=== PATIENT | male | born 1965 | race Caucasian/White ===

== ENCOUNTER 2020-08-17 18:35 | Inpatient (IN) | payer MEDICAID ==
[~2020-08-17] VITALS: Ht 175.3 cm; Wt 90.7 kg
[2020-08-17] MEDS ORDERED: DEXAMETHASONE 4MG/ML 1ML VIAL IV ONE (23:15)
[2020-08-17 23:32] LABS: BASOPHILS % 0.4 % (0.0-2.0); HEMATOCRIT. 48.3 % (42.0-52.0); HEMOGLOBIN. 16.4 g/dL (14.0-18.0); LYMPHOCYTES % 10.5 % (20.0-50.0); MEAN CORPUSCULAR HEMOGLOBIN 29.1 pg (28.0-32.0); MEAN CORPUSCULAR VOLUME 85.5 fL (80.0-94.0); MEAN PLATELET VOLUME 8.5 fl (7.4-10.4); MONOCYTES % 8.3 % (2.0-8.0); NEUTROPHILS % 80.8 % (40.0-76.0); PLATELET 229 x1000/uL (130-400); RED BLOOD CELL COUNT 5.66 mill/uL (4.7-6.1); RED CELL DISTRIBUTION WIDTH 14.8 % (11.6-14.6)
[2020-08-17 23:36] LABS: CHLORIDE 95 mEq/L (98-107)
[2020-08-18] MEDS ORDERED: CLONIDINE 0.1MG TABLET PO PRN (09:15)
[2020-08-18] MEDS ORDERED: ALBUTEROL 6.7GM HFA INHALER ORI PRN (09:15)
[2020-08-18] MEDS ORDERED: DEXTROSE 50% WATER 50ML SYRINGE IV PRN ×2 (09:15)
[2020-08-18] MEDS ORDERED: ONDANSETRON HCL 4MG/2ML INJ IV PRN (09:15)
[2020-08-18] MEDS ORDERED: ACETAMINOPHEN 650MG SUPP PR PRN (09:15)
[2020-08-18] MEDS ORDERED: SODIUM CHLORIDE 0.9% 500 ML IV ONE (09:15)
[2020-08-18 11:45] LABS: HEMATOCRIT 46.3 % (42.0-52.0); HEMOGLOBIN 16.2 g/dL (14.0-18.0); MEAN CORPUSCULAR HEMOGLOBIN 29.8 pg (28.0-32.0); MEAN CORPUSCULAR VOLUME 85.3 fL (80.0-94.0); PLATELET 257 x1000/uL (130-400); RED BLOOD CELL COUNT 5.43 mill/uL (4.7-6.1); RED CELL DISTRIBUTION WIDTH 14.4 % (11.6-14.6)
[2020-08-18 11:55] LABS: CHLORIDE 98 mEq/L (98-107)
[2020-08-18] MEDS: CEFTRIAXONE 1 G PREMIX 50 ML IV SCH (12:03)
[2020-08-18] MEDS: ENOXAPARIN 40MG/0.4ML SYR SUBCUT SCH (12:03)
[2020-08-18] MEDS: AZITHROMYCIN 500 MG in DEXT 5% WATER 250 ML IV SCH (12:37)
[2020-08-18] MEDS: BLOOD SUGAR DIAGNOSTIC STRIP TEST SCH ×3 (14:00→23:12)
[2020-08-18] MEDS: INSULIN LISPRO 100 UNITS/ML SUBCUT SCH ×3 (14:35→23:24)
[2020-08-18] MEDS: DEXAMETHASONE 10 MG/ML VIAL IV SCH (14:35)
[2020-08-18] MEDS: DOCUSATE SODIUM 100MG CAPSULE PO SCH (17:00)
[2020-08-18 19:34] LABS: CREATINE KINASE MB FRACTION 1.8 ng/mL (0.5-3.6)
[2020-08-18 20:00] LABS: HEPATITIS B SURFACE ANTIGEN NEGATIVE
[2020-08-18 20:30] LABS: HEPATITIS A AB IGM NEGATIVE (NEGATIVE)
[2020-08-18] MEDS: ASCORBIC ACID 500 MG TABLET PO SCH (23:24)
[2020-08-19 00:05] LABS: CREATINE KINASE MB FRACTION 1.5 ng/mL (0.5-3.6)
[2020-08-19 05:36] LABS: HEMATOCRIT. 44.1 % (42.0-52.0); HEMOGLOBIN. 15.6 g/dL (14.0-18.0); MEAN CORPUSCULAR HEMOGLOBIN 30.4 pg (28.0-32.0); MEAN CORPUSCULAR VOLUME 85.8 fL (80.0-94.0); MEAN PLATELET VOLUME 9.2 fl (7.4-10.4); PLATELET 288 x1000/uL (130-400); RED BLOOD CELL COUNT 5.14 mill/uL (4.7-6.1); RED CELL DISTRIBUTION WIDTH 14.7 % (11.6-14.6)
[2020-08-19 05:41] LABS: CHLORIDE 101 mEq/L (98-107)
[2020-08-19 05:49] LABS: PHOSPHORUS 3.1 mg/dL (2.5-4.9)
[2020-08-19 05:50] LABS: LDL CHOLESTEROL 148 mg/dL (5-100)
[2020-08-19 05:52] LABS: CREATINE KINASE MB FRACTION 1.1 ng/mL (0.5-3.6); HDL CHOLESTEROL 23 mg/dL (40-59)
[2020-08-19] MEDS: INSULIN LISPRO 100 UNITS/ML SUBCUT SCH ×3 (07:00→17:00)
[2020-08-19] MEDS: BLOOD SUGAR DIAGNOSTIC STRIP TEST SCH ×3 (07:05→16:30)
[2020-08-19] MEDS: ASCORBIC ACID 500 MG TABLET PO SCH ×3 (07:05→22:00)
[2020-08-19 08:28] LABS: BG BASE EXCESS -0.3 mmol/L (-2.0-2.0); BG CARBOXYHEMOGLOBIN 0.3 % (0.5-1.5); BG DEOXYHEMOGLOBIN 4.9 % (0.0-5.0); BG METHEMOGLOBIN 0.3 % (0.0-1.5); BG OXYGEN SATURATION 95.1 % (92.0-98.5); BG OXYHEMOGLOBIN 94.5 % (94.0-97.0); BG PCO2 30.4 mmHg (35.0-45.0); BG PH 7.478 (7.350-7.450); BG SAMPLE SITE RIGHT RADIAL; BG TOTAL HEMOGLOBIN 16.2 g/dL (12.0-18.0); BG VENT MODE MASK - BIPAP
[2020-08-19 08:46] LABS: PLATELET ESTIMATE NORMAL
[2020-08-19] MEDS: AZITHROMYCIN 500 MG in DEXT 5% WATER 250 ML IV SCH (09:00)
[2020-08-19] MEDS: DEXAMETHASONE 10 MG/ML VIAL IV SCH (09:00)
[2020-08-19] MEDS: PANTOPRAZOLE SODIUM 40 MG/VIAL IV SCH (09:00)
[2020-08-19] MEDS: ENOXAPARIN 40MG/0.4ML SYR SUBCUT SCH (09:50)
[2020-08-19] MEDS: CEFTRIAXONE 1 G PREMIX 50 ML IV SCH (10:00)
[2020-08-19] MEDS: DOCUSATE SODIUM 100MG CAPSULE PO SCH ×2 (10:30→17:00)
[2020-08-20] MEDS: INSULIN LISPRO 100 UNITS/ML SUBCUT SCH ×4 (01:31→21:28)
[2020-08-20] MEDS: BLOOD SUGAR DIAGNOSTIC STRIP TEST SCH ×5 (01:31→21:28)
[2020-08-20] MEDS: ASCORBIC ACID 500 MG TABLET PO SCH ×2 (06:29→14:54)
[2020-08-20] MEDS: ENOXAPARIN 40MG/0.4ML SYR SUBCUT SCH (09:00)
[2020-08-20] MEDS: PANTOPRAZOLE SODIUM 40 MG/VIAL IV SCH (09:00)
[2020-08-20] MEDS: DEXAMETHASONE 10 MG/ML VIAL IV SCH (09:00)
[2020-08-20] MEDS: CEFTRIAXONE 1 G PREMIX 50 ML IV SCH (10:00)
[2020-08-20 11:37] LABS: HEMATOCRIT. 45.3 % (42.0-52.0); HEMOGLOBIN. 15.1 g/dL (14.0-18.0); MEAN CORPUSCULAR HEMOGLOBIN 29.2 pg (28.0-32.0); MEAN CORPUSCULAR VOLUME 87.7 fL (80.0-94.0); MEAN PLATELET VOLUME 8.2 fl (7.4-10.4); PLATELET 309 x1000/uL (130-400); RED BLOOD CELL COUNT 5.17 mill/uL (4.7-6.1); RED CELL DISTRIBUTION WIDTH 14.9 % (11.6-14.6)
[2020-08-20 11:41] LABS: CHLORIDE 100 mEq/L (98-107)
[2020-08-20 11:47] LABS: PHOSPHORUS 3.6 mg/dL (2.5-4.9)
[2020-08-20] MEDS: AZITHROMYCIN 500 MG in DEXT 5% WATER 250 ML IV SCH (11:54)
[2020-08-20 14:08] LABS: PLATELET ESTIMATE NORMAL
[2020-08-20] MEDS: DOCUSATE SODIUM 100MG CAPSULE PO SCH ×2 (14:35→17:00)
[2020-08-21] MEDS: ASCORBIC ACID 500 MG TABLET PO SCH ×4 (01:45→22:51)
[2020-08-21 05:16] LABS: HEMATOCRIT. 48.3 % (42.0-52.0); HEMOGLOBIN. 16.1 g/dL (14.0-18.0); MEAN CORPUSCULAR VOLUME 86.9 fL (80.0-94.0); MEAN PLATELET VOLUME 8.4 fl (7.4-10.4); PLATELET 356 x1000/uL (130-400); RED BLOOD CELL COUNT 5.56 mill/uL (4.7-6.1); RED CELL DISTRIBUTION WIDTH 14.6 % (11.6-14.6)
[2020-08-21 05:23] LABS: CHLORIDE 100 mEq/L (98-107)
[2020-08-21] MEDS: BLOOD SUGAR DIAGNOSTIC STRIP TEST SCH ×4 (06:30→22:50)
[2020-08-21 06:52] LABS: PLATELET ESTIMATE NORMAL
[2020-08-21] MEDS: INSULIN LISPRO 100 UNITS/ML SUBCUT SCH ×5 (07:00→22:50)
[2020-08-21] MEDS: DOCUSATE SODIUM 100MG CAPSULE PO SCH ×2 (09:00→17:00)
[2020-08-21] MEDS: CEFTRIAXONE 1 G PREMIX 50 ML IV SCH (10:56)
[2020-08-21] MEDS: DEXAMETHASONE 10 MG/ML VIAL IV SCH (10:56)
[2020-08-21] MEDS: AZITHROMYCIN 500 MG in DEXT 5% WATER 250 ML IV SCH (10:56)
[2020-08-21] MEDS: ENOXAPARIN 40MG/0.4ML SYR SUBCUT SCH (10:57)
[2020-08-21] MEDS: PANTOPRAZOLE SODIUM 40 MG/VIAL IV SCH (14:01)
[2020-08-21 20:39] LABS: BG BASE EXCESS 1.3 mmol/L (-2.0-2.0); BG CARBOXYHEMOGLOBIN 0.6 % (0.5-1.5); BG DEOXYHEMOGLOBIN 12.7 % (0.0-5.0); BG FRACTION INSPIRED OXYGEN 100; BG HCO3 ACT 24.8 mmol/L (22.0-26.0); BG METHEMOGLOBIN 0.2 % (0.0-1.5); BG OXYGEN SATURATION 87.2 % (92.0-98.5); BG OXYHEMOGLOBIN 86.5 % (94.0-97.0); BG PCO2 36.3 mmHg (35.0-45.0); BG PH 7.453 (7.350-7.450); BG SAMPLE SITE RIGHT RADIAL; BG TOTAL HEMOGLOBIN 16.2 g/dL (12.0-18.0); BG VENT MODE MASK - BIPAP
[2020-08-22 05:11] LABS: HEMATOCRIT. 47.4 % (42.0-52.0); HEMOGLOBIN. 15.7 g/dL (14.0-18.0); MEAN CORPUSCULAR HEMOGLOBIN 28.9 pg (28.0-32.0); MEAN CORPUSCULAR VOLUME 87.3 fL (80.0-94.0); MEAN PLATELET VOLUME 8.4 fl (7.4-10.4); PLATELET 347 x1000/uL (130-400); RED BLOOD CELL COUNT 5.43 mill/uL (4.7-6.1); RED CELL DISTRIBUTION WIDTH 14.9 % (11.6-14.6)
[2020-08-22 05:19] LABS: CHLORIDE 100 mEq/L (98-107)
[2020-08-22] MEDS: INSULIN LISPRO 100 UNITS/ML SUBCUT SCH ×3 (07:00→17:00)
[2020-08-22] MEDS: BLOOD SUGAR DIAGNOSTIC STRIP TEST SCH ×3 (07:03→17:40)
[2020-08-22] MEDS: ASCORBIC ACID 500 MG TABLET PO SCH ×2 (07:03→14:33)
[2020-08-22 08:36] LABS: BG BASE EXCESS 0.6 mmol/L (-2.0-2.0); BG CARBOXYHEMOGLOBIN 0.3 % (0.5-1.5); BG DEOXYHEMOGLOBIN 6.6 % (0.0-5.0); BG HCO3 ACT 22.9 mmol/L (22.0-26.0); BG METHEMOGLOBIN 0.1 % (0.0-1.5); BG OXYGEN SATURATION 93.4 % (92.0-98.5); BG PCO2 30.9 mmHg (35.0-45.0); BG PH 7.487 (7.350-7.450); BG PO2 64.7 mmHg (75.0-100.0); BG SAMPLE SITE RIGHT RADIAL; BG TOTAL HEMOGLOBIN 16.3 g/dL (12.0-18.0); BG VENT MODE VENT- PRVC
[2020-08-22] MEDS: AZITHROMYCIN 500 MG in DEXT 5% WATER 250 ML IV SCH (08:38)
[2020-08-22] MEDS: DOCUSATE SODIUM 100MG CAPSULE PO SCH ×2 (08:38→17:00)
[2020-08-22] MEDS: DEXAMETHASONE 10 MG/ML VIAL IV SCH (08:38)
[2020-08-22] MEDS: PANTOPRAZOLE SODIUM 40 MG/VIAL IV SCH (08:38)
[2020-08-22] MEDS: CEFTRIAXONE 1 G PREMIX 50 ML IV SCH (09:17)
[2020-08-22] MEDS: ENOXAPARIN 40MG/0.4ML SYR SUBCUT SCH (09:17)
[2020-08-22 14:53] LABS: PLATELET ESTIMATE NORMAL
[2020-08-22 20:23] LABS: BG BASE EXCESS 2.2 mmol/L (-2.0-2.0); BG CARBOXYHEMOGLOBIN 0.6 % (0.5-1.5); BG DEOXYHEMOGLOBIN 10.1 % (0.0-5.0); BG FRACTION INSPIRED OXYGEN 100; BG METHEMOGLOBIN 0.1 % (0.0-1.5); BG OXYGEN SATURATION 89.8 % (92.0-98.5); BG OXYHEMOGLOBIN 89.2 % (94.0-97.0); BG PCO2 38.1 mmHg (35.0-45.0); BG PH 7.452 (7.350-7.450); BG PO2 56.9 mmHg (75.0-100.0); BG SAMPLE SITE RIGHT RADIAL; BG TOTAL HEMOGLOBIN 15.9 g/dL (12.0-18.0); BG VENT MODE MASK - BIPAP
[2020-08-23] MEDS: BLOOD SUGAR DIAGNOSTIC STRIP TEST SCH ×3 (01:00→21:00)
[2020-08-23] MEDS: INSULIN LISPRO 100 UNITS/ML SUBCUT SCH ×3 (01:00→21:00)
[2020-08-23] MEDS: ASCORBIC ACID 500 MG TABLET PO SCH ×3 (03:00→22:57)
[2020-08-23] MEDS ORDERED: FENTANYL CITRATE/PF 50MCG/ML 2ML VIAL IV ONE (07:30)
[2020-08-23] MEDS ORDERED: ETOMIDATE 2MG/ML 10ML VIAL IV ONE (07:30)
[2020-08-23] MEDS ORDERED: SUCCINYLCHOLINE CHLORIDE 200MG/10ML IV ONE (07:30)
[2020-08-23] MEDS ORDERED: MIDAZOLAM HCL 100 MG in DEXT 5% WATER 80 ML IV ONE ×2 (07:30→07:45)
[2020-08-23] MEDS ORDERED: PROPOFOL 10MG/ML 100ML 100 ML IV ONE (08:30)
[2020-08-23] MEDS ORDERED: PROPOFOL 10MG/ML 100ML 100 ML IV PRN (08:30)
[2020-08-23] MEDS: PANTOPRAZOLE SODIUM 40 MG/VIAL IV SCH (09:00)
[2020-08-23] MEDS: ENOXAPARIN 40MG/0.4ML SYR SUBCUT SCH (09:00)
[2020-08-23] MEDS: DOCUSATE SODIUM 100MG CAPSULE PO SCH (09:00)
[2020-08-23] MEDS: DEXAMETHASONE 10 MG/ML VIAL IV SCH (09:00)
[2020-08-23] MEDS ORDERED: FENTANYL CITRATE/PF 1,000 MCG in SODIUM CHLORIDE 0.9% 80 ML IV PRN (09:30)
[2020-08-23] MEDS ORDERED: FENTANYL CITRATE 2,500 MCG in SODIUM CHLORIDE 0.9% 200 ML IV PRN (09:45)
[2020-08-23] MEDS ORDERED: PHENYLEPHRINE 50 MG in DEXT 5% WATER 245 ML IV PRN (09:45)
[2020-08-23 10:07] LABS: BG BASE EXCESS -8.5 mmol/L (-2.0-2.0); BG CARBOXYHEMOGLOBIN 0.5 % (0.5-1.5); BG DEOXYHEMOGLOBIN 6.7 % (0.0-5.0); BG FRACTION INSPIRED OXYGEN 100; BG HCO3 ACT 19.7 mmol/L (22.0-26.0); BG METHEMOGLOBIN 0.3 % (0.0-1.5); BG OXYGEN SATURATION 93.2 % (92.0-98.5); BG OXYHEMOGLOBIN 92.5 % (94.0-97.0); BG PCO2 50.3 mmHg (35.0-45.0); BG PH 7.211 (7.350-7.450); BG PO2 82.6 mmHg (75.0-100.0); BG SAMPLE SITE RIGHT BRACHIAL; BG TOTAL HEMOGLOBIN 16.9 g/dL (12.0-18.0); BG VENT MODE VENT - AC
[2020-08-23] MEDS ORDERED: LORAZEPAM 2MG/ML CPJ IV ONE ×2 (11:30→11:45)
[2020-08-23] MEDS ORDERED: MIDAZOLAM HCL 5 MG/5 ML VIAL IV ONE (12:15)
[2020-08-23] MEDS ORDERED: MIDAZOLAM HCL 2 MG/2 ML VIAL IV ONE (12:26)
[2020-08-23] MEDS ORDERED: IPRATROPIUM/ALBUTEROL 0.5-3(2.5)MG/3ML NEB HHN PRN (13:00)
[2020-08-23 13:38] LABS: HEMATOCRIT. 46.9 % (42.0-52.0); HEMOGLOBIN. 15.4 g/dL (14.0-18.0); MEAN CORPUSCULAR HEMOGLOBIN 29.1 pg (28.0-32.0); MEAN CORPUSCULAR VOLUME 88.8 fL (80.0-94.0); MEAN PLATELET VOLUME 7.7 fl (7.4-10.4); PLATELET 411 x1000/uL (130-400); RED BLOOD CELL COUNT 5.28 mill/uL (4.7-6.1); RED CELL DISTRIBUTION WIDTH 14.8 % (11.6-14.6)
[2020-08-23] MEDS: SODIUM CHLORIDE 0.9% 1,000 ML IV SCH ×2 (14:15→23:53)
[2020-08-23 15:45] LABS: PLATELET ESTIMATE SLIGHTLY INCREASED
[2020-08-24 04:29] LABS: HEMATOCRIT. 47.5 % (42.0-52.0); HEMOGLOBIN. 15.8 g/dL (14.0-18.0); MEAN CORPUSCULAR HEMOGLOBIN 29.6 pg (28.0-32.0); MEAN CORPUSCULAR VOLUME 88.7 fL (80.0-94.0); MEAN PLATELET VOLUME 8.3 fl (7.4-10.4); PLATELET 374 x1000/uL (130-400); RED BLOOD CELL COUNT 5.36 mill/uL (4.7-6.1); RED CELL DISTRIBUTION WIDTH 15.1 % (11.6-14.6)
[2020-08-24] MEDS: SODIUM CHLORIDE 0.9% 1,000 ML IV SCH ×2 (07:00→09:33)
[2020-08-24] MEDS ORDERED: INSULIN REGULAR (HUMULIN R) 300UNITS/3ML VIAL IV NR (07:45)
[2020-08-24] MEDS ORDERED: SODIUM BICARBONATE 8.4% 1 MEQ/ML 50ML SYR IV NR (07:45)
[2020-08-24] MEDS ORDERED: DEXTROSE 50% WATER 50ML SYRINGE IV NR (07:45)
[2020-08-24] MEDS ORDERED: SODIUM POLYSTYRENE SULFONATE 15 G/60 ML BOT PO NR (08:00)
[2020-08-24] MEDS: ASCORBIC ACID 500 MG TABLET PO SCH ×2 (08:00→14:00)
[2020-08-24] MEDS ORDERED: CALCIUM CHLORIDE 1,000 MG in DEXT 5% WATER 90 ML IV NR (08:00)
[2020-08-24] MEDS ORDERED: LIDOCAINE HCL 1% 20ML VIAL (Pyxis) INJ ONE (08:16)
[2020-08-24 08:53] LABS: INR 1.2; PARTIAL THROMBOPLASTIN TIME 28.2 sec (23.4-31.0); PROTHROMBIN TIME 12.8 sec (9.6-11.0)
[2020-08-24] MEDS: DEXAMETHASONE 10 MG/ML VIAL IV SCH (09:00)
[2020-08-24] MEDS: PANTOPRAZOLE SODIUM 40 MG/VIAL IV SCH (09:00)
[2020-08-24] MEDS: ENOXAPARIN 40MG/0.4ML SYR SUBCUT SCH (09:00)
[2020-08-24] MEDS: BLOOD SUGAR DIAGNOSTIC STRIP TEST SCH (11:30)
[2020-08-24] MEDS: INSULIN LISPRO 100 UNITS/ML SUBCUT SCH ×2 (12:00→17:00)
[2020-08-24 13:49] LABS: BG BASE EXCESS -9.4 mmol/L (-2.0-2.0); BG CARBOXYHEMOGLOBIN 0.7 % (0.5-1.5); BG FRACTION INSPIRED OXYGEN 100; BG HCO3 ACT 19.9 mmol/L (22.0-26.0); BG METHEMOGLOBIN 0.3 % (0.0-1.5); BG OXYGEN SATURATION 85.9 % (92.0-98.5); BG PCO2 56.8 mmHg (35.0-45.0); BG PH 7.162 (7.350-7.450); BG PO2 55.3 mmHg (75.0-100.0); BG SAMPLE SITE RIGHT RADIAL; BG TOTAL HEMOGLOBIN 15.5 g/dL (12.0-18.0); BG VENT MODE VENT - AC
[2020-08-24 15:34] LABS: PLATELET ESTIMATE NORMAL
[2020-08-24] MEDS ORDERED: MIDAZOLAM HCL 100 MG in SODIUM CHLORIDE 0.9% 80 ML IV PRN (19:00)
[2020-08-24] MEDS: CEFEPIME 1,000 MG in SODIUM CHLORIDE 0.9% 50 ML IV SCH (22:49)
[2020-08-25] MEDS: ASCORBIC ACID 500 MG TABLET PO SCH ×3 (06:00→22:00)
[2020-08-25 06:25] LABS: HEMATOCRIT. 40.8 % (42.0-52.0); HEMOGLOBIN. 13.4 g/dL (14.0-18.0); MEAN CORPUSCULAR HEMOGLOBIN 28.9 pg (28.0-32.0); MEAN PLATELET VOLUME 8.5 fl (7.4-10.4); PLATELET 266 x1000/uL (130-400); RED BLOOD CELL COUNT 4.64 mill/uL (4.7-6.1); RED CELL DISTRIBUTION WIDTH 15.7 % (11.6-14.6)
[2020-08-25] MEDS: SODIUM CHLORIDE 0.9% 1,000 ML IV SCH ×2 (07:30→16:15)
[2020-08-25] MEDS: PHENYLEPHRINE 50 MG in SODIUM CHLORIDE 0.9% 245 ML IV PRN (07:30)
[2020-08-25] MEDS: INSULIN LISPRO 100 UNITS/ML SUBCUT SCH ×4 (08:10→21:30)
[2020-08-25] MEDS: IPRATROPIUM/ALBUTEROL 0.5-3(2.5)MG/3ML NEB HHN SCH ×4 (08:36→22:55)
[2020-08-25 08:50] LABS: PLATELET ESTIMATE NORMAL
[2020-08-25 10:21] LABS: BG BASE EXCESS -7.3 mmol/L (-2.0-2.0); BG CARBOXYHEMOGLOBIN 0.4 % (0.5-1.5); BG DEOXYHEMOGLOBIN 0.6 % (0.0-5.0); BG FRACTION INSPIRED OXYGEN 100; BG METHEMOGLOBIN 0.5 % (0.0-1.5); BG OXYGEN SATURATION 99.4 % (92.0-98.5); BG OXYHEMOGLOBIN 98.5 % (94.0-97.0); BG PCO2 41.1 mmHg (35.0-45.0); BG PH 7.283 (7.350-7.450); BG PO2 249.4 mmHg (75.0-100.0); BG SAMPLE SITE RIGHT RADIAL; BG TOTAL HEMOGLOBIN 14.8 g/dL (12.0-18.0); BG TOTAL RESPIRATORY RATE 30 b/min; BG VENT MODE VENT - AC
[2020-08-25] MEDS ORDERED: DEXTROSE 50% WATER 50ML SYRINGE IV SCH (10:30)
[2020-08-25] MEDS ORDERED: INSULIN REGULAR (HUMULIN R) 300UNITS/3ML VIAL IV SCH (10:30)
[2020-08-25] MEDS ORDERED: SODIUM BICARBONATE 8.4% 1 MEQ/ML 50ML SYR IV SCH (10:30)
[2020-08-25] MEDS: ENOXAPARIN 30MG/0.3ML SYR SUBCUT SCH (13:45)
[2020-08-25] MEDS: PANTOPRAZOLE SODIUM 40 MG/VIAL IV SCH (13:45)
[2020-08-25] MEDS: DEXAMETHASONE 10 MG/ML VIAL IV SCH (13:45)
[2020-08-25] MEDS: CEFEPIME 1,000 MG in SODIUM CHLORIDE 0.9% 50 ML IV SCH (14:00)
[2020-08-25] MEDS: MIDAZOLAM HCL 100 MG in DEXT 5% WATER 80 ML IV PRN (15:16)
[2020-08-26] MEDS: IPRATROPIUM/ALBUTEROL 0.5-3(2.5)MG/3ML NEB HHN SCH ×4 (04:37→22:10)
[2020-08-26] MEDS: ASCORBIC ACID 500 MG TABLET PO SCH ×4 (06:00→23:08)
[2020-08-26] MEDS: BLOOD SUGAR DIAGNOSTIC STRIP TEST SCH ×4 (06:30→21:55)
[2020-08-26] MEDS: INSULIN LISPRO 100 UNITS/ML SUBCUT SCH ×4 (07:34→23:08)
[2020-08-26 08:29] LABS: MEAN CORPUSCULAR HEMOGLOBIN 28.8 pg (28.0-32.0); MEAN CORPUSCULAR VOLUME 88.5 fL (80.0-94.0); MEAN PLATELET VOLUME 8.5 fl (7.4-10.4); PLATELET 231 x1000/uL (130-400); RED BLOOD CELL COUNT 4.52 mill/uL (4.7-6.1); RED CELL DISTRIBUTION WIDTH 15.7 % (11.6-14.6)
[2020-08-26] MEDS: SODIUM CHLORIDE 0.9% 1,000 ML IV SCH ×3 (08:30→23:09)
[2020-08-26] MEDS: ENOXAPARIN 30MG/0.3ML SYR SUBCUT SCH (08:53)
[2020-08-26] MEDS: DEXAMETHASONE 10 MG/ML VIAL IV SCH (08:54)
[2020-08-26] MEDS: PANTOPRAZOLE SODIUM 40 MG/VIAL IV SCH (08:54)
[2020-08-26 09:12] LABS: BG BASE EXCESS -9.5 mmol/L (-2.0-2.0); BG CARBOXYHEMOGLOBIN 0.1 % (0.5-1.5); BG DEOXYHEMOGLOBIN 2.3 % (0.0-5.0); BG FRACTION INSPIRED OXYGEN 90; BG HCO3 ACT 17.4 mmol/L (22.0-26.0); BG METHEMOGLOBIN 0.3 % (0.0-1.5); BG OXYGEN SATURATION 97.7 % (92.0-98.5); BG OXYHEMOGLOBIN 97.3 % (94.0-97.0); BG PCO2 41.6 mmHg (35.0-45.0); BG PO2 120.4 mmHg (75.0-100.0); BG SAMPLE SITE LEFT RADIAL; BG TOTAL HEMOGLOBIN 13.5 g/dL (12.0-18.0); BG TOTAL RESPIRATORY RATE 35 b/min; BG VENT MODE VENT - AC
[2020-08-26] MEDS ORDERED: SODIUM POLYSTYRENE SULFONATE 15 G/60 ML BOT PO NR (11:00)
[2020-08-26 13:17] LABS: PLATELET ESTIMATE NORMAL
[2020-08-26] MEDS: CEFEPIME 1,000 MG in SODIUM CHLORIDE 0.9% 50 ML IV SCH (13:46)
[2020-08-26] MEDS: FENTANYL CITRATE/PF 2,500 MCG in SODIUM CHLORIDE 0.9% 200 ML IV PRN (14:13)
[2020-08-27] VITALS (21 sets, daily range): BP systolic 120–140; BP diastolic 49–81
[2020-08-27] MEDS: IPRATROPIUM/ALBUTEROL 0.5-3(2.5)MG/3ML NEB HHN SCH ×4 (04:20→21:26)
[2020-08-27] MEDS: ASCORBIC ACID 500 MG TABLET PO SCH ×3 (06:00→20:44)
[2020-08-27] MEDS: BLOOD SUGAR DIAGNOSTIC STRIP TEST SCH ×4 (06:39→20:38)
[2020-08-27] MEDS: INSULIN LISPRO 100 UNITS/ML SUBCUT SCH ×4 (07:00→20:38)
[2020-08-27] MEDS: SODIUM CHLORIDE 0.9% 1,000 ML IV SCH (08:15)
[2020-08-27] MEDS: PANTOPRAZOLE SODIUM 40 MG/VIAL IV SCH (09:00)
[2020-08-27] MEDS: ENOXAPARIN 30MG/0.3ML SYR SUBCUT SCH (09:00)
[2020-08-27] MEDS: DEXAMETHASONE 10 MG/ML VIAL IV SCH (09:00)
[2020-08-27 10:49] LABS: BG BASE EXCESS -13.6 mmol/L (-2.0-2.0); BG CARBOXYHEMOGLOBIN 0.2 % (0.5-1.5); BG DEOXYHEMOGLOBIN 1.5 % (0.0-5.0); BG FRACTION INSPIRED OXYGEN 90; BG HCO3 ACT 12.7 mmol/L (22.0-26.0); BG METHEMOGLOBIN 0.3 % (0.0-1.5); BG OXYGEN SATURATION 98.5 % (92.0-98.5); BG PCO2 31.4 mmHg (35.0-45.0); BG PH 7.225 (7.350-7.450); BG PO2 149.1 mmHg (75.0-100.0); BG SAMPLE SITE LEFT RADIAL; BG TOTAL HEMOGLOBIN 13.7 g/dL (12.0-18.0); BG TOTAL RESPIRATORY RATE 38 b/min; BG VENT MODE VENT - AC
[2020-08-27 13:21] LABS: HEMATOCRIT. 40.9 % (42.0-52.0); HEMOGLOBIN. 13.5 g/dL (14.0-18.0); MEAN CORPUSCULAR HEMOGLOBIN 29.2 pg (28.0-32.0); MEAN CORPUSCULAR VOLUME 88.5 fL (80.0-94.0); PLATELET 239 x1000/uL (130-400); RED BLOOD CELL COUNT 4.62 mill/uL (4.7-6.1); RED CELL DISTRIBUTION WIDTH 15.9 % (11.6-14.6)
[2020-08-27] MEDS ORDERED: HYDRALAZINE 20MG/ML VIAL IV PRN (13:30)
[2020-08-27] MEDS ORDERED: CEFEPIME 1,000 MG in DEXTROSE 5% WATER 50 ML IV SCH (14:00)
[2020-08-27] MEDS ORDERED: SODIUM BICARBONATE 8.4% 1 MEQ/ML 50ML SYR IV NR (16:10)
[2020-08-27] MEDS ORDERED: DEXTROSE 50% WATER 50ML SYRINGE IV NR (16:13)
[2020-08-27] MEDS ORDERED: CALCIUM CHLORIDE 1,000 MG in DEXT 5% WATER 90 ML IV SCH (16:30)
[2020-08-27] MEDS ORDERED: INSULIN REGULAR (HUMULIN R) 300UNITS/3ML VIAL IV NR (17:30)
[2020-08-27] MEDS: SODIUM BICARBONATE 100 MEQ in SODIUM CHLORIDE 0.45% 1,000 ML IV SCH ×2 (17:30→20:45)
[2020-08-27] MEDS ORDERED: SODIUM POLYSTYRENE SULFONATE 15 G/60 ML BOT PO SCH (17:30)
[2020-08-27 18:07] LABS: PLATELET ESTIMATE NORMAL
[2020-08-27] MEDS: FAMOTIDINE 20MG/2ML VIAL IV SCH (20:44)
[2020-08-28] VITALS (68 sets, daily range): BP systolic 92–141; BP diastolic 59–85
[2020-08-28] MEDS: MIDAZOLAM HCL 100 MG in DEXT 5% WATER 80 ML IV PRN ×2 (00:39→09:11)
[2020-08-28] MEDS: MEROPENEM 1,000 MG in SODIUM CHLORIDE 0.9% 100 ML IV SCH (05:00)
[2020-08-28] MEDS: INSULIN LISPRO 100 UNITS/ML SUBCUT SCH ×4 (05:44→21:19)
[2020-08-28] MEDS: ASCORBIC ACID 500 MG TABLET PO SCH ×3 (05:44→21:18)
[2020-08-28] MEDS: BLOOD SUGAR DIAGNOSTIC STRIP TEST SCH ×4 (05:44→20:20)
[2020-08-28 06:04] LABS: HEMATOCRIT. 41.3 % (42.0-52.0); HEMOGLOBIN. 13.7 g/dL (14.0-18.0); MEAN CORPUSCULAR HEMOGLOBIN 29.2 pg (28.0-32.0); MEAN CORPUSCULAR VOLUME 87.8 fL (80.0-94.0); MEAN PLATELET VOLUME 8.6 fl (7.4-10.4); PLATELET 280 x1000/uL (130-400); RED BLOOD CELL COUNT 4.71 mill/uL (4.7-6.1)
[2020-08-28] MEDS: FENTANYL CITRATE/PF 2,500 MCG in SODIUM CHLORIDE 0.9% 200 ML IV PRN ×2 (06:29→23:57)
[2020-08-28] MEDS ORDERED: DEXTROSE 50% WATER 50ML SYRINGE IV NR (08:17)
[2020-08-28] MEDS ORDERED: SODIUM BICARBONATE 8.4% 1 MEQ/ML 50ML SYR IV NR (08:17)
[2020-08-28] MEDS ORDERED: INSULIN REGULAR (HUMULIN R) 300UNITS/3ML VIAL IV NR (08:17)
[2020-08-28] MEDS ORDERED: SODIUM POLYSTYRENE SULFONATE 15 G/60 ML BOT PO NR (09:00)
[2020-08-28] MEDS: IPRATROPIUM/ALBUTEROL 0.5-3(2.5)MG/3ML NEB HHN SCH ×2 (09:05→15:30)
[2020-08-28] MEDS: DEXAMETHASONE 10 MG/ML VIAL IV SCH (09:09)
[2020-08-28] MEDS: ENOXAPARIN 30MG/0.3ML SYR SUBCUT SCH (09:10)
[2020-08-28 10:37] LABS: BG BASE EXCESS -11.3 mmol/L (-2.0-2.0); BG CARBOXYHEMOGLOBIN 0.4 % (0.5-1.5); BG DEOXYHEMOGLOBIN 5.6 % (0.0-5.0); BG HCO3 ACT 17.2 mmol/L (22.0-26.0); BG METHEMOGLOBIN 0.3 % (0.0-1.5); BG OXYGEN SATURATION 94.4 % (92.0-98.5); BG OXYHEMOGLOBIN 93.7 % (94.0-97.0); BG PCO2 48.1 mmHg (35.0-45.0); BG PO2 81.7 mmHg (75.0-100.0); BG SAMPLE SITE RIGHT BRACHIAL; BG TOTAL HEMOGLOBIN 14.2 g/dL (12.0-18.0); BG VENT MODE VENT - AC
[2020-08-28 13:31] LABS: PLATELET ESTIMATE NORMAL
[2020-08-28] MEDS: FAMOTIDINE 20MG/2ML VIAL IV SCH (21:18)
[2020-08-28] MEDS: SODIUM BICARBONATE 100 MEQ in SODIUM CHLORIDE 0.45% 1,000 ML IV SCH (21:32)
[2020-08-29] VITALS (90 sets, daily range): BP systolic 108–191; BP diastolic 65–108
[2020-08-29] MEDS: IPRATROPIUM/ALBUTEROL 0.5-3(2.5)MG/3ML NEB HHN SCH ×4 (00:43→22:30)
[2020-08-29] MEDS ORDERED: ACETAMINOPHEN 650MG/20.3ML UDC PO PRN (02:00)
[2020-08-29] MEDS: MIDAZOLAM HCL 100 MG in SODIUM CHLORIDE 0.9% 80 ML IV PRN ×2 (04:30→20:11)
[2020-08-29 05:01] LABS: HEMATOCRIT. 36.6 % (42.0-52.0); HEMOGLOBIN. 12.2 g/dL (14.0-18.0); MEAN CORPUSCULAR VOLUME 87.3 fL (80.0-94.0); MEAN PLATELET VOLUME 8.6 fl (7.4-10.4); PLATELET 185 x1000/uL (130-400); RED CELL DISTRIBUTION WIDTH 16.2 % (11.6-14.6)
[2020-08-29] MEDS: ASCORBIC ACID 500 MG TABLET PO SCH ×3 (05:31→20:12)
[2020-08-29] MEDS: INSULIN LISPRO 100 UNITS/ML SUBCUT SCH ×4 (05:50→23:42)
[2020-08-29] MEDS: BLOOD SUGAR DIAGNOSTIC STRIP TEST SCH ×4 (08:00→23:42)
[2020-08-29] MEDS ORDERED: SODIUM BICARBONATE 8.4% 1 MEQ/ML 50ML SYR IV NR (08:17)
[2020-08-29] MEDS ORDERED: INSULIN REGULAR (HUMULIN R) 300UNITS/3ML VIAL IV NR (08:17)
[2020-08-29] MEDS ORDERED: SODIUM POLYSTYRENE SULFONATE 15 G/60 ML BOT PO NR (08:17)
[2020-08-29] MEDS ORDERED: DEXTROSE 50% WATER 50ML SYRINGE IV NR (08:17)
[2020-08-29] MEDS: MEROPENEM 1,000 MG in SODIUM CHLORIDE 0.9% 100 ML IV SCH (08:38)
[2020-08-29] MEDS: ENOXAPARIN 30MG/0.3ML SYR SUBCUT SCH (08:59)
[2020-08-29 09:33] LABS: BG BASE EXCESS -9.2 mmol/L (-2.0-2.0); BG CARBOXYHEMOGLOBIN 0.1 % (0.5-1.5); BG FRACTION INSPIRED OXYGEN 100; BG HCO3 ACT 19.7 mmol/L (22.0-26.0); BG METHEMOGLOBIN 0.2 % (0.0-1.5); BG OXYHEMOGLOBIN 94.7 % (94.0-97.0); BG PCO2 55.7 mmHg (35.0-45.0); BG PH 7.166 (7.350-7.450); BG PO2 92.2 mmHg (75.0-100.0); BG SAMPLE SITE RIGHT RADIAL; BG VENT MODE VENT - AC
[2020-08-29 10:06] LABS: PLATELET ESTIMATE NORMAL
[2020-08-29 13:50] LABS: BG BASE EXCESS -6.1 mmol/L (-2.0-2.0); BG CARBOXYHEMOGLOBIN 0.3 % (0.5-1.5); BG DEOXYHEMOGLOBIN 5.1 % (0.0-5.0); BG FRACTION INSPIRED OXYGEN 100; BG HCO3 ACT 20.1 mmol/L (22.0-26.0); BG METHEMOGLOBIN 0.2 % (0.0-1.5); BG OXYGEN SATURATION 94.9 % (92.0-98.5); BG OXYHEMOGLOBIN 94.4 % (94.0-97.0); BG PCO2 42.1 mmHg (35.0-45.0); BG PH 7.296 (7.350-7.450); BG PO2 84.9 mmHg (75.0-100.0); BG SAMPLE SITE RIGHT RADIAL; BG TOTAL HEMOGLOBIN 12.1 g/dL (12.0-18.0); BG VENT MODE VENT - AC
[2020-08-29] MEDS: FENTANYL CITRATE/PF 2,500 MCG in SODIUM CHLORIDE 0.9% 200 ML IV PRN ×3 (16:37→23:41)
[2020-08-29] MEDS: FAMOTIDINE 20MG/2ML VIAL IV SCH (20:12)
[2020-08-29] MEDS ORDERED: VANCOMYCIN 2,000 MG in SODIUM CHLORIDE 0.9% 500 ML IV SCH (23:00)
[2020-08-30] VITALS (70 sets, daily range): BP systolic 108–156; BP diastolic 60–94
[2020-08-30 01:46] LABS: BG BASE EXCESS -2.5 mmol/L (-2.0-2.0); BG CARBOXYHEMOGLOBIN 0.2 % (0.5-1.5); BG DEOXYHEMOGLOBIN 20.3 % (0.0-5.0); BG FRACTION INSPIRED OXYGEN 100; BG HCO3 ACT 24.6 mmol/L (22.0-26.0); BG METHEMOGLOBIN 0.1 % (0.0-1.5); BG OXYGEN SATURATION 79.6 % (92.0-98.5); BG OXYHEMOGLOBIN 79.4 % (94.0-97.0); BG PCO2 51.9 mmHg (35.0-45.0); BG PH 7.293 (7.350-7.450); BG PO2 49.6 mmHg (75.0-100.0); BG SAMPLE SITE RIGHT RADIAL; BG VENT MODE VENT - APRV
[2020-08-30] MEDS: IPRATROPIUM/ALBUTEROL 0.5-3(2.5)MG/3ML NEB HHN SCH ×4 (02:50→20:13)
[2020-08-30] MEDS: SODIUM BICARBONATE 100 MEQ in SODIUM CHLORIDE 0.45% 1,000 ML IV SCH (04:27)
[2020-08-30] MEDS: BLOOD SUGAR DIAGNOSTIC STRIP TEST SCH ×4 (05:52→23:59)
[2020-08-30] MEDS: ASCORBIC ACID 500 MG TABLET PO SCH ×3 (06:20→22:12)
[2020-08-30] MEDS: INSULIN LISPRO 100 UNITS/ML SUBCUT SCH ×3 (06:20→17:15)
[2020-08-30 06:23] LABS: HEMATOCRIT. 34.2 % (42.0-52.0); HEMOGLOBIN. 11.5 g/dL (14.0-18.0); MEAN CORPUSCULAR HEMOGLOBIN 28.9 pg (28.0-32.0); MEAN PLATELET VOLUME 8.8 fl (7.4-10.4); PLATELET 155 x1000/uL (130-400); RED BLOOD CELL COUNT 3.97 mill/uL (4.7-6.1); RED CELL DISTRIBUTION WIDTH 16.4 % (11.6-14.6)
[2020-08-30] MEDS: ENOXAPARIN 30MG/0.3ML SYR SUBCUT SCH (08:37)
[2020-08-30] MEDS: FENTANYL CITRATE/PF 2,500 MCG in SODIUM CHLORIDE 0.9% 200 ML IV PRN ×2 (08:59→18:21)
[2020-08-30] MEDS: MIDAZOLAM HCL 100 MG in SODIUM CHLORIDE 0.9% 80 ML IV PRN ×2 (09:55→23:27)
[2020-08-30] MEDS: MEROPENEM 1,000 MG in SODIUM CHLORIDE 0.9% 100 ML IV SCH (10:28)
[2020-08-30 11:58] LABS: BG BASE EXCESS 0.9 mmol/L (-2.0-2.0); BG CARBOXYHEMOGLOBIN 0.4 % (0.5-1.5); BG DEOXYHEMOGLOBIN 13.5 % (0.0-5.0); BG HCO3 ACT 26.2 mmol/L (22.0-26.0); BG METHEMOGLOBIN 0.3 % (0.0-1.5); BG OXYGEN SATURATION 86.4 % (92.0-98.5); BG OXYHEMOGLOBIN 85.8 % (94.0-97.0); BG PCO2 44.1 mmHg (35.0-45.0); BG PH 7.391 (7.350-7.450); BG SAMPLE SITE LEFT RADIAL; BG TOTAL HEMOGLOBIN 13.1 g/dL (12.0-18.0); BG VENT MODE VENT - AC
[2020-08-30 14:19] LABS: PLATELET ESTIMATE NORMAL
[2020-08-30 18:56] LABS: CLARITY URINE TURBID (CLEAR); COLOR URINE DARK YELLOW (YELLOW); KETONES URINE NEGATIVE (NEGATIVE); LEUKOCYTE ESTERASE URINE 2+ (NEGATIVE); NITRITE URINE POSITIVE (NEGATIVE); OCCULT BLOOD URINE 3+ (NEGATIVE); PROTEIN URINE 2+ (NEGATIVE); SPECIFIC GRAVITY URINE 1.024 (1.005-1.030)
[2020-08-30] MEDS: FAMOTIDINE 20MG/2ML VIAL IV SCH (21:00)
[2020-08-31] VITALS (61 sets, daily range): BP systolic 105–157; BP diastolic 60–90
[2020-08-31] MEDS: INSULIN LISPRO 100 UNITS/ML SUBCUT SCH ×5 (00:01→23:43)
[2020-08-31] MEDS: FENTANYL CITRATE/PF 2,500 MCG in SODIUM CHLORIDE 0.9% 200 ML IV PRN ×3 (02:13→18:38)
[2020-08-31] MEDS: IPRATROPIUM/ALBUTEROL 0.5-3(2.5)MG/3ML NEB HHN SCH ×4 (02:26→20:40)
[2020-08-31 06:04] LABS: HEMATOCRIT. 35.5 % (42.0-52.0); HEMOGLOBIN. 11.8 g/dL (14.0-18.0); MEAN CORPUSCULAR VOLUME 86.9 fL (80.0-94.0); MEAN PLATELET VOLUME 8.8 fl (7.4-10.4); PLATELET 90 x1000/uL (130-400); RED BLOOD CELL COUNT 4.08 mill/uL (4.7-6.1); RED CELL DISTRIBUTION WIDTH 16.2 % (11.6-14.6)
[2020-08-31] MEDS: ASCORBIC ACID 500 MG TABLET PO SCH ×3 (06:08→21:28)
[2020-08-31] MEDS: BLOOD SUGAR DIAGNOSTIC STRIP TEST SCH ×4 (06:08→23:23)
[2020-08-31 08:47] LABS: BG BASE EXCESS -4.8 mmol/L (-2.0-2.0); BG CARBOXYHEMOGLOBIN 0.8 % (0.5-1.5); BG DEOXYHEMOGLOBIN 13.5 % (0.0-5.0); BG HCO3 ACT 23.9 mmol/L (22.0-26.0); BG METHEMOGLOBIN 0.2 % (0.0-1.5); BG OXYGEN SATURATION 86.4 % (92.0-98.5); BG OXYHEMOGLOBIN 85.5 % (94.0-97.0); BG PCO2 61.2 mmHg (35.0-45.0); BG PO2 66.1 mmHg (75.0-100.0); BG SAMPLE SITE RIGHT RADIAL; BG TOTAL HEMOGLOBIN 13.3 g/dL (12.0-18.0); BG VENT MODE VENT - AC
[2020-08-31] MEDS: MEROPENEM 1,000 MG in SODIUM CHLORIDE 0.9% 100 ML IV SCH (08:59)
[2020-08-31] MEDS: MIDAZOLAM HCL 100 MG in SODIUM CHLORIDE 0.9% 80 ML IV PRN ×2 (09:00→18:39)
[2020-08-31] MEDS: ENOXAPARIN 30MG/0.3ML SYR SUBCUT SCH (09:00)
[2020-08-31] MEDS ORDERED: SODIUM BICARBONATE 8.4% 1 MEQ/ML 50ML SYR IV SCH (10:00)
[2020-08-31] MEDS ORDERED: SODIUM BICARBONATE 100 MEQ in SODIUM CHLORIDE 0.45% 1,000 ML IV SCH (11:00)
[2020-08-31 13:39] LABS: PLATELET ESTIMATE DECREASED
[2020-08-31 13:46] LABS: BG BASE EXCESS 1.3 mmol/L (-2.0-2.0); BG CARBOXYHEMOGLOBIN 0.6 % (0.5-1.5); BG DEOXYHEMOGLOBIN 14.6 % (0.0-5.0); BG METHEMOGLOBIN 0.3 % (0.0-1.5); BG OXYGEN SATURATION 85.3 % (92.0-98.5); BG OXYHEMOGLOBIN 84.5 % (94.0-97.0); BG PH 7.333 (7.350-7.450); BG PO2 54.7 mmHg (75.0-100.0); BG SAMPLE SITE RIGHT RADIAL; BG TOTAL HEMOGLOBIN 11.8 g/dL (12.0-18.0); BG VENT MODE VENT - AC
[2020-08-31] MEDS ORDERED: SULFAMETHOXAZOLE IV SCH (16:45)
[2020-08-31] MEDS ORDERED: WATER IV SCH (16:45)
[2020-08-31] MEDS ORDERED: TRIMETHOPRIM IV SCH (16:45)
[2020-08-31] MEDS ORDERED: DEXT 5% IV SCH (16:45)
[2020-08-31] MEDS: ACETAZOLAMIDE 250MG TABLET PO SCH ×2 (17:28→23:43)
[2020-08-31] MEDS ORDERED: BACTRIM XX SCH (18:15)
[2020-08-31] MEDS: WATER IV SCH (21:27)
[2020-08-31] MEDS: TRIMETHOPRIM IV SCH (21:27)
[2020-08-31] MEDS: FAMOTIDINE 20MG/2ML VIAL IV SCH (21:27)
[2020-08-31] MEDS: DEXT 5% IV SCH (21:27)
[2020-08-31] MEDS: SULFAMETHOXAZOLE IV SCH (21:27)
[2020-09-01] VITALS (56 sets, daily range): BP systolic 87–160; BP diastolic 44–102
[2020-09-01] MEDS: MIDAZOLAM HCL 100 MG in SODIUM CHLORIDE 0.9% 80 ML IV PRN ×4 (01:28→23:31)
[2020-09-01] MEDS: FENTANYL CITRATE/PF 2,500 MCG in SODIUM CHLORIDE 0.9% 200 ML IV PRN ×4 (01:29→23:29)
[2020-09-01] MEDS: IPRATROPIUM/ALBUTEROL 0.5-3(2.5)MG/3ML NEB HHN SCH ×4 (02:50→21:29)
[2020-09-01 05:21] LABS: HEMATOCRIT. 33.9 % (42.0-52.0); HEMOGLOBIN. 11.2 g/dL (14.0-18.0); MEAN CORPUSCULAR HEMOGLOBIN 29.6 pg (28.0-32.0); MEAN CORPUSCULAR VOLUME 89.3 fL (80.0-94.0); RED CELL DISTRIBUTION WIDTH 16.1 % (11.6-14.6)
[2020-09-01] MEDS: INSULIN LISPRO 100 UNITS/ML SUBCUT SCH ×3 (05:31→17:53)
[2020-09-01] MEDS: BLOOD SUGAR DIAGNOSTIC STRIP TEST SCH ×3 (05:31→17:29)
[2020-09-01] MEDS: ASCORBIC ACID 500 MG TABLET PO SCH ×3 (05:32→22:13)
[2020-09-01] MEDS: ACETAZOLAMIDE 250MG TABLET PO SCH ×3 (05:32→17:53)
[2020-09-01 09:13] LABS: BG BASE EXCESS -1.7 mmol/L (-2.0-2.0); BG CARBOXYHEMOGLOBIN 0.7 % (0.5-1.5); BG FRACTION INSPIRED OXYGEN 100; BG HCO3 ACT 26.1 mmol/L (22.0-26.0); BG METHEMOGLOBIN 0.2 % (0.0-1.5); BG OXYHEMOGLOBIN 94.1 % (94.0-97.0); BG PCO2 58.6 mmHg (35.0-45.0); BG PH 7.267 (7.350-7.450); BG PO2 85.6 mmHg (75.0-100.0); BG SAMPLE SITE RIGHT RADIAL; BG TOTAL HEMOGLOBIN 12.1 g/dL (12.0-18.0); BG VENT MODE VENT - AC
[2020-09-01 10:20] LABS: PLATELET 90 x1000/uL (130-400)
[2020-09-01] MEDS ORDERED: SODIUM POLYSTYRENE SULFONATE 15 G/60 ML BOT PO SCH (13:15)
[2020-09-01 14:20] LABS: NUCLEATED RED BLOOD CELLS 2 /100 WBC
[2020-09-01 14:21] LABS: PLATELET ESTIMATE SLIGHTLY DECREASED
[2020-09-01] MEDS: PROPOFOL 10MG/ML 100ML 100 ML IV PRN (16:27)
[2020-09-01] MEDS: PHENYLEPHRINE 50 MG in SODIUM CHLORIDE 0.9% 245 ML IV PRN (22:46)
[2020-09-02] VITALS (101 sets, daily range): BP systolic 88–144; BP diastolic 18–78
[2020-09-02] MEDS: WATER IV SCH (00:13)
[2020-09-02] MEDS: TRIMETHOPRIM IV SCH (00:13)
[2020-09-02] MEDS: SULFAMETHOXAZOLE IV SCH (00:13)
[2020-09-02] MEDS: DEXT 5% IV SCH (00:13)
[2020-09-02] MEDS: FAMOTIDINE 20MG/2ML VIAL IV SCH ×2 (00:14→21:33)
[2020-09-02] MEDS: INSULIN LISPRO 100 UNITS/ML SUBCUT SCH ×5 (00:14→23:29)
[2020-09-02] MEDS: ACETAZOLAMIDE 250MG TABLET PO SCH ×5 (00:14→23:29)
[2020-09-02] MEDS: BLOOD SUGAR DIAGNOSTIC STRIP TEST SCH ×4 (00:30→18:00)
[2020-09-02] MEDS: PROPOFOL 10MG/ML 100ML 100 ML IV PRN ×3 (01:24→16:31)
[2020-09-02] MEDS: ASCORBIC ACID 500 MG TABLET PO SCH ×3 (05:33→21:33)
[2020-09-02] MEDS: MIDAZOLAM HCL 100 MG in SODIUM CHLORIDE 0.9% 80 ML IV PRN ×3 (05:45→20:56)
[2020-09-02] MEDS: FENTANYL CITRATE/PF 2,500 MCG in SODIUM CHLORIDE 0.9% 200 ML IV PRN ×2 (08:14→15:12)
[2020-09-02 08:52] LABS: HEMATOCRIT. 34.2 % (42.0-52.0); HEMOGLOBIN. 10.4 g/dL (14.0-18.0); MEAN CORPUSCULAR HEMOGLOBIN 28.5 pg (28.0-32.0); MEAN CORPUSCULAR VOLUME 93.6 fL (80.0-94.0); RED BLOOD CELL COUNT 3.66 mill/uL (4.7-6.1)
[2020-09-02 09:01] LABS: PLATELET 50 x1000/uL (130-400)
[2020-09-02 09:55] LABS: BG BASE EXCESS -8.1 mmol/L (-2.0-2.0); BG CARBOXYHEMOGLOBIN 0.3 % (0.5-1.5); BG DEOXYHEMOGLOBIN 3.2 % (0.0-5.0); BG HCO3 ACT 22.1 mmol/L (22.0-26.0); BG METHEMOGLOBIN 0.2 % (0.0-1.5); BG OXYGEN SATURATION 96.8 % (92.0-98.5); BG OXYHEMOGLOBIN 96.3 % (94.0-97.0); BG PCO2 71.7 mmHg (35.0-45.0); BG PH 7.107 (7.350-7.450); BG SAMPLE SITE RIGHT RADIAL; BG TOTAL HEMOGLOBIN 11.2 g/dL (12.0-18.0); BG VENT MODE VENT - AC
[2020-09-02] MEDS: IPRATROPIUM/ALBUTEROL 0.5-3(2.5)MG/3ML NEB HHN SCH ×2 (10:10→21:43)
[2020-09-02 10:45] LABS: FIBRINOGEN 807 mg/dL (200-400); INR 1.1; PROTHROMBIN TIME 11.1 sec (9.6-11.0)
[2020-09-02 11:11] LABS: PHOSPHORUS 12.4 mg/dL (2.5-4.9)
[2020-09-02 11:46] LABS: D-DIMER > 35.20 mg/L FEU (<0.50)
[2020-09-02] MEDS ORDERED: INSULIN REGULAR (HUMULIN R) 300UNITS/3ML VIAL IV NR (12:15)
[2020-09-02] MEDS ORDERED: SODIUM POLYSTYRENE SULFONATE 15 G/60 ML BOT PO NR (12:15)
[2020-09-02] MEDS ORDERED: DEXTROSE 50% WATER 50ML SYRINGE IV NR (12:15)
[2020-09-02] MEDS ORDERED: SODIUM BICARBONATE 8.4% 1 MEQ/ML 50ML SYR IV NR (12:15)
[2020-09-02] MEDS: CALCIUM ACETATE 667MG CAPSULE PO SCH ×2 (12:35→17:00)
[2020-09-02] MEDS ORDERED: CALCIUM ACETATE 667MG CAPSULE PO SCH (13:00)
[2020-09-02 13:54] LABS: NUCLEATED RED BLOOD CELLS 1 /100 WBC
[2020-09-02 13:55] LABS: PLATELET ESTIMATE DECREASED
[2020-09-03] VITALS (89 sets, daily range): BP systolic 53–199; BP diastolic 13–144
[2020-09-03] MEDS: BLOOD SUGAR DIAGNOSTIC STRIP TEST SCH ×4 (00:12→17:02)
[2020-09-03] MEDS: FENTANYL CITRATE/PF 2,500 MCG in SODIUM CHLORIDE 0.9% 200 ML IV PRN ×3 (00:13→17:22)
[2020-09-03] MEDS: PROPOFOL 10MG/ML 100ML 100 ML IV PRN (00:33)
[2020-09-03] MEDS: IPRATROPIUM/ALBUTEROL 0.5-3(2.5)MG/3ML NEB HHN SCH ×4 (00:52→21:07)
[2020-09-03] MEDS: MIDAZOLAM HCL 100 MG in SODIUM CHLORIDE 0.9% 80 ML IV PRN ×3 (04:58→19:46)
[2020-09-03] MEDS: ASCORBIC ACID 500 MG TABLET PO SCH ×3 (05:42→21:52)
[2020-09-03] MEDS: ACETAZOLAMIDE 250MG TABLET PO SCH ×3 (05:42→17:02)
[2020-09-03] MEDS: INSULIN LISPRO 100 UNITS/ML SUBCUT SCH ×3 (05:43→17:02)
[2020-09-03 06:25] LABS: HEMATOCRIT. 32.6 % (42.0-52.0); HEMOGLOBIN. 9.9 g/dL (14.0-18.0); MEAN CORPUSCULAR HEMOGLOBIN 28.7 pg (28.0-32.0); MEAN CORPUSCULAR VOLUME 94.6 fL (80.0-94.0); MEAN PLATELET VOLUME 10.2 fl (7.4-10.4); PLATELET 60 x1000/uL (130-400); RED BLOOD CELL COUNT 3.44 mill/uL (4.7-6.1)
[2020-09-03] MEDS ORDERED: INSULIN REGULAR (HUMULIN R) 300UNITS/3ML VIAL IV SCH (08:00)
[2020-09-03] MEDS ORDERED: SODIUM BICARBONATE 8.4% 1 MEQ/ML 50ML SYR IV SCH (08:00)
[2020-09-03] MEDS ORDERED: DEXTROSE 50% WATER 50ML SYRINGE IV SCH (08:00)
[2020-09-03] MEDS: CALCIUM ACETATE 667MG CAPSULE PO SCH ×3 (09:00→17:02)
[2020-09-03] MEDS ORDERED: SODIUM POLYSTYRENE SULFONATE 15 G/60 ML BOT PO SCH (09:00)
[2020-09-03] MEDS ORDERED: LEVOFLOXACIN 250MG PREMIX 50 ML IV SCH (09:30)
[2020-09-03 10:08] LABS: BG BASE EXCESS -13.7 mmol/L (-2.0-2.0); BG CARBOXYHEMOGLOBIN 0.3 % (0.5-1.5); BG DEOXYHEMOGLOBIN 4.6 % (0.0-5.0); BG FRACTION INSPIRED OXYGEN 90; BG HCO3 ACT 17.2 mmol/L (22.0-26.0); BG METHEMOGLOBIN 0.3 % (0.0-1.5); BG OXYGEN SATURATION 95.4 % (92.0-98.5); BG OXYHEMOGLOBIN 94.8 % (94.0-97.0); BG PCO2 66.7 mmHg (35.0-45.0); BG PO2 105.6 mmHg (75.0-100.0); BG SAMPLE SITE RIGHT RADIAL; BG TOTAL HEMOGLOBIN 10.7 g/dL (12.0-18.0); BG VENT MODE VENT - AC
[2020-09-03 10:28] LABS: NUCLEATED RED BLOOD CELLS 4 /100 WBC
[2020-09-03 10:29] LABS: PLATELET ESTIMATE DECREASED
[2020-09-03] MEDS ORDERED: LEVOFLOXACIN 500MG PREMIX 100 ML IV SCH (12:00)
[2020-09-03] MEDS: PHENYLEPHRINE 50 MG in SODIUM CHLORIDE 0.9% 245 ML IV PRN (12:41)
[2020-09-03] MEDS: PHENYLEPHRINE 100 MG in SODIUM CHLORIDE 0.9% 240 ML IV PRN ×2 (17:21→20:30)
[2020-09-03] MEDS: FAMOTIDINE 20MG/2ML VIAL IV SCH (21:52)
[2020-09-03] MEDS ORDERED: DEXTROSE 50% WATER 50ML SYRINGE IV NR (22:21)
[2020-09-03] MEDS ORDERED: CALCIUM CHLORIDE 1GM/10ML SYR IV NR (22:21)
[2020-09-03] MEDS ORDERED: SODIUM BICARBONATE 8.4% 1 MEQ/ML 50ML SYR IV NR (22:23)
[2020-09-03] MEDS ORDERED: INSULIN REGULAR (HUMULIN R) 300UNITS/3ML VIAL IV NR (22:24)
[2020-09-03] MEDS ORDERED: INSULIN REGULAR (HUMULIN R) 300UNITS/3ML VIAL IV STA (22:24)
[2020-09-03] MEDS ORDERED: SODIUM POLYSTYRENE SULFONATE 15 G/60 ML BOT PO NR (23:00)
[2020-09-04] VITALS (13 sets, daily range): BP systolic 83–158; BP diastolic 25–51
[2020-09-04] MEDS: INSULIN LISPRO 100 UNITS/ML SUBCUT SCH
[2020-09-04] MEDS: ACETAZOLAMIDE 250MG TABLET PO SCH (00:09)
[2020-09-04] MEDS: BLOOD SUGAR DIAGNOSTIC STRIP TEST SCH (00:10)
[2020-09-04] MEDS: FENTANYL CITRATE/PF 2,500 MCG in SODIUM CHLORIDE 0.9% 200 ML IV PRN (03:45)
[2020-09-04] MEDS: PHENYLEPHRINE 100 MG in SODIUM CHLORIDE 0.9% 240 ML IV PRN (03:45)
[2020-09-04 06:15] LABS: HEMOGLOBIN. 8.3 g/dL (14.0-18.0); MEAN CORPUSCULAR HEMOGLOBIN 28.7 pg (28.0-32.0); MEAN CORPUSCULAR VOLUME 104.2 fL (80.0-94.0); MEAN PLATELET VOLUME 10.7 fl (7.4-10.4); PLATELET 57 x1000/uL (130-400); RED BLOOD CELL COUNT 2.88 mill/uL (4.7-6.1); RED CELL DISTRIBUTION WIDTH 20.2 % (11.6-14.6)
[2020-09-04 07:26] LABS: NUCLEATED RED BLOOD CELLS 15 /100 WBC; PLATELET ESTIMATE MARKEDLY DECREASED
[2020-09-05] MEDS ORDERED: LEVOFLOXACIN 250MG PREMIX 50 ML IV SCH (11:00)
== END 2020-09-04 09:41 | disposition expired | DRG 720 ==
LOC: ER 18:35 → MICUSO 23:50 → 7WST 08-25 07:55 → MICUSO 08-25 08:22
PROVIDERS: ADMIT Internal Medicine; ATTEND Internal Medicine
PROC: 5A09557 Assistance with Respiratory Ventilation, Greater than 96 Consecutive Hours, Continuous Positive Airway Pressure (ICD-10-PCS; 2020-08-17)
PROC: 5A1955Z Respiratory Ventilation, Greater than 96 Consecutive Hours (ICD-10-PCS; principal; 2020-08-23)
PROC: 0BH17EZ Insertion of Endotracheal Airway into Trachea, Via Natural or Artificial Opening (ICD-10-PCS; 2020-08-23)
PROC: 06HY33Z Insertion of Infusion Device into Lower Vein, Percutaneous Approach (ICD-10-PCS; 2020-08-23)
PROC: B54BZZA Ultrasonography of Right Lower Extremity Veins, Guidance (ICD-10-PCS; 2020-08-23)
PROC: 5A1D70Z Performance of Urinary Filtration, Intermittent, Less than 6 Hours Per Day (ICD-10-PCS; 2020-08-24)
PROC: 0JH63XZ Insertion of Tunneled Vascular Access Device into Chest Subcutaneous Tissue and Fascia, Percutaneous Approach (ICD-10-PCS; 2020-08-24)
PROC: 02HV33Z Insertion of Infusion Device into Superior Vena Cava, Percutaneous Approach (ICD-10-PCS; 2020-08-24)
PROC: B548ZZA Ultrasonography of Superior Vena Cava, Guidance (ICD-10-PCS; 2020-08-24)
PROC: 5A1D70Z Performance of Urinary Filtration, Intermittent, Less than 6 Hours Per Day (ICD-10-PCS; 2020-08-26)
PROC: 5A1D70Z Performance of Urinary Filtration, Intermittent, Less than 6 Hours Per Day (ICD-10-PCS; 2020-08-28)
PROC: 5A1D70Z Performance of Urinary Filtration, Intermittent, Less than 6 Hours Per Day (ICD-10-PCS; 2020-08-29)
PROC: 5A1D70Z Performance of Urinary Filtration, Intermittent, Less than 6 Hours Per Day (ICD-10-PCS; 2020-08-30)
PROC: 5A1D70Z Performance of Urinary Filtration, Intermittent, Less than 6 Hours Per Day (ICD-10-PCS; 2020-09-01)
PROC: 5A1D70Z Performance of Urinary Filtration, Intermittent, Less than 6 Hours Per Day (ICD-10-PCS; 2020-09-02)
PROC: 5A1D70Z Performance of Urinary Filtration, Intermittent, Less than 6 Hours Per Day (ICD-10-PCS; 2020-09-03)
DX: A41.89 Other specified sepsis (principal); R65.20 Severe sepsis without septic shock; U07.1 COVID-19; J96.01 Acute respiratory failure with hypoxia; D72.810 Lymphocytopenia; E66.9 Obesity, unspecified; E87.1 Hypo-osmolality and hyponatremia; I10 Essential (primary) hypertension; J12.82 Pneumonia due to coronavirus disease 2019; D69.6 Thrombocytopenia, unspecified; E11.65 Type 2 diabetes mellitus with hyperglycemia; E78.1 Pure hyperglyceridemia; E78.5 Hyperlipidemia, unspecified; E87.2 Acidosis; E87.5 Hyperkalemia; G93.40 Encephalopathy, unspecified; K76.0 Fatty (change of) liver, not elsewhere classified; N17.0 Acute kidney failure with tubular necrosis; Z60.2 Problems related to living alone; E44.0 Moderate protein-calorie malnutrition; R65.21 Severe sepsis with septic shock; Z66 Do not resuscitate; Z99.2 Dependence on renal dialysis; Z68.29 Body mass index [BMI] 29.0-29.9, adult
CPT/HCPCS: 36415; 36556; 36600; 71045; 76700; 76937; 80048; 80053; 80061; 80076; 80202; 81003; 82375; 82553; 82728; 82805; 82962; 83036; 83605; 83735; 83880; 84100; 84132; 84145; 84443; 84478; 84484; 85025; 85027; 85362; 85379; 85384; 86140; 86705; 86709; 86803; 87070; 87077; 87186; 87340; 93005; 93970; 94003; 94640; 94660; 99291; A6261; C1752; C9113; C9803; J0330; J0360; J0456; J0692; J0696; J1100; J1650; J1815; J1956; J2060; J2185; J2250; J2370; J2704; J3010; J3370; J3490; J7030; J7040; J7050; J7060; U0003